=== PATIENT | female | born 1995 | race Caucasian/White ===

== ENCOUNTER 2017-09-05 17:45 | Emergency (ER) | payer OTHER ==
[2017-09-05 18:29] VITALS: RESP 16
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
[2017-09-05 21:29] VITALS: BP 112/75; PULSE 62; TEMP 98.2; O2SAT 95
== END 2017-09-05 20:50 | disposition home or self-care (01) ==
DX: S09.90XA Unspecified injury of head, initial encounter (principal); S00.03XA Contusion of scalp, initial encounter; S80.11XA Contusion of right lower leg, initial encounter; S80.12XA Contusion of left lower leg, initial encounter; Z87.891 Personal history of nicotine dependence; V49.00XA Driver injured in collision with unspecified motor vehicles in nontraffic accident, initial encounter; Y92.410 Unspecified street and highway as the place of occurrence of the external cause; Y93.89 Activity, other specified